=== PATIENT | male | born 1985 | race Caucasian/White ===

== ENCOUNTER 2019-10-31 12:10 | Emergency (ER) | payer MEDICARE, MEDICAID ==
[~2019-10-31] VITALS: Ht 180.3 cm; Wt 149.6 kg
[2019-10-31 12:15] VITALS: BP 163/87
[2019-10-31] MEDS ORDERED: IBUPROFEN 800 MG (MOTRIN) TAB PO ONE (12:30)
[2019-10-31 12:38] LABS: BILIRUBIN,URINE NEGATIVE (NEGATIVE); CLARITY,URINE CLOUDY; COLOR,URINE DARK YELLOW; GLUCOSE, URINE (UA) NEGATIVE (NEGATIVE); KETONES,URINE NEGATIVE (NEGATIVE); LEUKOCYTE ESTERASE ,URINE 2+ (NEGATIVE); NITRITE,URINE NEGATIVE (NEGATIVE); PROTEIN,URINE 2+ (NEGATIVE); RBC,URINE 50-100 /HPF
[2019-10-31 12:39] LABS: BACTERIA,URINE TRACE /HPF; WBC,URINE >100 /HPF
[2019-10-31] MEDS ORDERED: cefTRIAXone 1,000 MG/2.86 ml vial (IM ONLY) IM SCH (12:45)
[2019-10-31] MEDS ORDERED: LIDOCAINE 1% INJ 20 ML 20 ML VIAL INJ ONE (12:45)
[2019-10-31] MEDS ORDERED: SERT100T8 PO (12:49)
[2019-10-31] MEDS ORDERED: LITH300C PO (12:49)
[2019-10-31] MEDS ORDERED: LURA20TA PO (12:49)
[2019-10-31] MEDS ORDERED: LURA80TA3 PO (12:49)
[2019-10-31] MEDS ORDERED: CLON0.1T PO (12:49)
--- NOTE | 2019-10-31 12:50 | NUR ---
[facility] walk-in clinic was called at this time for patient report, because patient stated he was told to go to Emergency Room. Deidra the law firm receptionist stated patient was not seen there, but there was a phone call and Chiquis Campo told patient to go to emergency room, because he might have a kidney stone.
--- NOTE | 2019-10-31 12:54 | ED General ---
General Chief Complaint: - Urinary Stated Complaint: PAINFUL URINATION Nursing Triage Note: Pt presents to ED sent from [facility] Walk In [facility] for urinary sx-painful urination x 2 days. Pt described urinary discharge being noted once. Nursing Sepsis Screen: No Definite Risk History of Present Illness Date Seen by Provider: Oct 31, 2019 Time Seen by Provider: 12:15 Initial Comments The patient is a 34-year-old male who presents for evaluation of 2 days of dysu sharri. Patient notes burning discomfort to the distal shaft and tip of his penis with urination and has also noticed an odor and some scant blood in his urine over that interval. No associated fevers, nausea or vomiting, abdominal pain of any kind, flank pain, new or worsening back pain (patient does admit to some longstanding chronic low back pain which he states is not new or different today), pain to testicles or scrotum or perineum or rectum, changes in bowel habits. Patient is alert and pleasantly and appropriately interactive and in absolutely no distress upon initial evaluation here in the emergency department. No therapy for discomfort prior to arrival; patient states he only has pain when he tries to urinate. Patient relates that he has not been sexually active with a partner in at least the last year. Allergies and Home Medications Allergies Coded Allergies: methylphenidate (Unverified Adverse Reaction, Unknown, 10/31/19) ziprasidone (Unverified Adverse Reaction, Unknown, 10/31/19) Patient Home Medication List Home Medication List Reviewed: Yes Review of Systems Review of Systems Constitutional: see HPI All Other Systems Reviewed Negative Unless Noted: Yes Past Supaury-Jkcyeb-Sqnbrz Hx Past Med/Social Hx: Reviewed Nursing Past Med/Soc Hx Patient Social History Alcohol Use: Denies Use Recreational Drug Use: No Smoking Status: Never a Smoker 2nd Hand Smoke Exposure: Yes Recent Foreign Travel: No Contact w/Someone Who Travel: No Recent Infectious Disease Expo: No Recent Hopitalizations: No Physical Abuse: No Sexual Abuse: No Mistreated: No Fear: No Immunizations Up To Date Tetanus Booster (TDap): Unknown Seasonal Allergies Seasonal Allergies: No Past Medical History Surgeries: Yes (Colonoscopy) Respiratory: No Cardiac: No Neurological: No Genitourinary: No Gastrointestinal: No Musculoskeletal: No Endocrine: No HEENT: No Cancer: No Psychosocial: Yes (On Latuda, Sertraline, [place], Clonindine) ADD/ADHD, Bipolar Integumentary: Yes Eczema Blood Disorders: No Family Medical History Reviewed Nursing Family Hx Physical Exam Vital Signs Vital Signs - First Documented 10/31/19 12:15 Temp 36.1 Pulse 93 Resp 20 B/P (MAP) 163/87 (112) Pulse Ox 99 O2 Delivery Room Air Capillary Refill : Less Than 3 Seconds Height, Weight, BMI Height: '" Weight: lbs. oz. kg; 46.00 BMI Method: General Appearance: No Apparent Distress Comments This is a younger male appearing nontoxic and in no acute distress. Head is normocephalic and atraumatic. Neck is supple and nontender. Oropharynx is moist. Lungs are clear to auscultation at all stations. There is normal S1 and S2 without rubs or gallops and capillary refill is appropriate, less than 2 seconds globally. Abdomen is soft, nontender and nondistended. No CVA tenderness to percussion. Examination of the back reveals no erythema, warmth, swelling or focal tenderness. Examination of the genitourinary system reveals no erythema, warmth, swelling, tenderness, rashes or lesions to inguinal region, penis, testicles, scrotum, perineum or rectum. No inguinal lymphadenopathy noted. Bilateral lower extremities are neurovascularly intact distally with strength 5 out of 5, sensation intact to light touch in all nerve distributions, DP and PT pulses 2+, capillary refill less than 2 seconds, feet warm and well-perfused. Progress/Results/Core Measures Suspected Sepsis Recent Fever Within 48 Hours: No Infection Criteria Present: Suspected New Infection New/Unexplained Altered Menta: No Sepsis Screen: No Definite Risk SIRS Temperature: Pulse: 93 Respiratory Rate: 20 Blood Pressure 163 /87 Mean: 112 Results/Orders Lab Results Laboratory Tests Test 10/31/19 12:20 Range/Units Urine Color DARK YELLOW Urine Clarity CLOUDY Urine pH 6.0 5-9 Urine Specific [place] >=1.030 1.016-1.022 Urine Protein 2+ H NEGATIVE Urine Glucose (UA) NEGATIVE NEGATIVE Urine Ketones NEGATIVE NEGATIVE Urine Nitrite NEGATIVE NEGATIVE Urine Bilirubin NEGATIVE NEGATIVE Urine Urobilinogen 0.2 < = 1.0 MG/DL Urine Leukocyte Esterase 2+ H NEGATIVE Urine RBC (Auto) 3+ H NEGATIVE Urine RBC 50-100 H /HPF Urine WBC >100 H /HPF Urine Squamous Epithelial Cells 2-5 /HPF Urine Crystals NONE /LPF Urine Bacteria TRACE /HPF Urine Casts NONE /LPF Urine Mucus LARGE H /LPF Urine Culture Indicated YES My Orders Orders - CONNOR VEGAS MD Chlamydia Trachomatis Urine (10/31/19 12:17) Neis Edenilson Dna Urine Test (10/31/19 12:17) Ua Culture If Indicated (10/31/19 12:20) Ibuprofen Tablet (Motrin Tablet) (10/31/19 12:30) Urine Culture (10/31/19 12:20) Ceftriaxone For Im Use (Rocephin For Im (10/31/19 12:45) Lidocaine 1% Inj 20 Ml (Xylocaine 1% Inj (10/31/19 12:45) Vital Signs/I&O 10/31/19 12:15 Temp 36.1 Pulse 93 Resp 20 B/P (MAP) 163/87 (112) Pulse Ox 99 O2 Delivery Room Air Capillary Refill : Less Than 3 Seconds Blood Pressure Mean: 112 Progress Note : Time: 12:54 Progress Note Urinalysis is positive for evidence of quite significant cystitis. Patient does have a degree of hematuria however he has NO abdominal pain and NO flank or back pain. Overall clinical scenario is not consistent with ureteral stone or other intra-abdominal or retroperitoneal acute process. We have sent a urine culture and have also sent gonorrhea and chlamydia testing but will hold off on empiric treatment for STIs given no sexual partners recently. Will treat for complicated cystitis with a dose of Rocephin here and a course of Bactrim for home use. Patient has been advised that if culture indicates that his antibiotic needs to be adjusted that we will contact him to follow up. He understands that if he feels worse instead of better or develops other new symptoms of concern that he needs to return to the emergency department right away for reevaluation. Otherwise he is to follow-up in the next 1-2 days with primary care in the office. All questions are answered. Departure Impression Primary Impression: Acute cystitis with hematuria Disposition: 01 HOME, SELF-CARE Condition: Improved Departure-Patient Inst. Referrals: SELF,TEN LAWTON Patient Instructions: Urinary Tract Infection, Adult (DC), Urinary Tract Infections in Adults Add. Discharge Instructions: Follow-up very closely with your primary care physician in the office in the next 1-2 days for a reevaluation of your symptoms any discussion of next steps in care. Take the ibuprofen as prescribed for discomfort associated with urination. Take the antibiotic until the prescription is gone. Return to the emergency department right away with worsening symptoms or with any other new symptoms of concern. Scripts Ibuprofen (Ibuprofen) 800 Mg Tablet 800 MG PO Q8H PRN for PAIN, #30 TAB 0 Refills Prov: CONNOR VEGAS MD 10/31/19 Sulfamethoxazole/Trimethoprim (Bactrim Ds Tablet) 1 Each Tablet 1 EACH PO BID for 7 Days, #14 TAB Prov: CONNOR VEGAS MD 10/31/19 CONNOR VEGAS MD Oct 31, 2019 12:54
[2019-10-31] MEDS ORDERED: SULF1TAB35 PO (13:01)
[2019-10-31] MEDS ORDERED: IBUP-1780 PO (13:01)
--- OUTSIDE RECORDS SUMMARY | 2019-10-31 15:25 | XMS REPORT ---
Author Author Everardo HOLLOWAY Organization [facility] Address [address] [place] [address] Care Team Providers Care Boom Tender Name Role Phone FIGUEROA HOLLOWAY Unavailable PROBLEMS Unknown Problems ALLERGIES Substance Reaction Event Type Date Status Ritalin Unknown Drug Allergy Jul, Active Geodon palpatations Drug Allergy Jul, Active ENCOUNTERS Encounter Location Date Diagnosis [facility] [id number] [place] [address] Apr, Acute URI J06.9 [facility] [id number] [place] [address] Aug, Ingrowing left great toenail L60.0 [facility] [id number] [place] [address] Jul, Ingrown toenail of right foot L60.0 IMMUNIZATIONS No Known Immunizations SOCIAL HISTORY Never Assessed REASON FOR VISIT right great toenail ingrown and infected, annalisa patiño PLAN OF CARE Activity Details Follow Up 2 Weeks Reason: VITAL SIGNS Weight 320 lbs 2018-08-03 Blood pressure systolic 124 mmHg 2018-08-03 Blood pressure diastolic 82 mmHg 2018-08-03 MEDICATIONS Medication Instructions Dosage Frequency Start Date End Date Duration S tatus Clonidine HCl 0.1 MG Orally Once a day 1 tablet at bedtime 24h 30 day(s) Active [place] Carbonate 300 MG Orally Once a day 1 capsule at bedtime 24h 30 day(s) Active Sulfamethoxazole-Trimethoprim 800-160 MG Orally Twice a day 1 table t 12h Jul, 10 day(s) Active Benadryl Allergy 25 MG Orally every 8 hrs 1 tablet as needed 8h Active Naproxen 500 MG Orally every 12 hrs 1 tablet with food or milk as nee ded 12h Not-Taking Latuda 80 MG Orally Once a day 1 tablet with food 24h 30 day(s) Active Zoloft 50 MG Orally Once a day 1 tablet 24h 30 day(s ) Active Zoloft 100 MG Orally Once a day 1 tablet 24h 30 day( s) Active RESULTS No Results PROCEDURES No Known procedures INSTRUCTIONS MEDICATIONS ADMINISTERED No Known Medications MEDICAL (GENERAL) HISTORY Type Description Date Medical History bi polar disorder Medical History environmental allergies Medical History thyroid function study abnormality Medical History chronic midline low back pain Medical History lumbar spondylolysis Medical History lumbar disc narrowing Medical History lumbar canal stenosis
--- OUTSIDE RECORDS SUMMARY | 2019-10-31 15:25 | XMS REPORT | Continuity of Care Document ---
Author Organization Unknown Address Unknown Phone Unavailable Allergies There is no data. Medications There is no data. Problems There is no data. Procedures There is no data. Results Test Result Range Complete urinalysis with reflex to cultu re - 10/31/19 12:20 Urine color determination DARK YELLOW N RG Urine clarity determination CLOUDY NR G Urine pH measurement by test strip 6.0 5-9 Specific gravity of urine by test strip >= 1.016-1.022 Urine protein assay by test strip, semi-quantitative 2+ NEGATIVE Urine glucose detection by automated test strip NE GATIVE NEGATIVE Erythrocytes detection in urine sediment by light micr oscopy 3+ NEGATIVE Urine ketones detection by automated test strip NE GATIVE NEGATIVE Urine nitrite detection by test strip NEGATIVE NEGATIVE Urine total bilirubin detection by test strip NEGA TIVE NEGATIVE Urine urobilinogen measurement by automated test strip (mass/volume) 0.2 mg/dL < = 1.0 Urine leukocyte esterase detection by dipstick 2+ NEGATIVE Automated urine sediment erythrocyte cou nt by microscopy (number/high power field) [HPF] NRG Automated urine sediment leukocyte count by microscopy (number/high power field) > [HPF] NRG Bacteria detection in urine sediment by light microsco py TRACE NRG Squamous epithelial cells detection in u rine sediment by light microscopy 2-5 NRG Crystals detection in urine sediment by light microsco py NONE NRG Casts detection in urine sediment by light microscopy NONE NRG Mucus detection in urine sediment by light microscopy LARGE NRG Complete urinalysis with reflex to culture YES NRG Encounters ACCT No. Visit Date/Time Discharge Status Pt. Type Provider Facility Loc./Unit Complaint [id number] 08/17/2018 13:20:00 08/17/2018 23:59: 59 CLS Outpatient SHAY OLIVEIRA LAC [id number] 10/31/2019 12:13:00 020 13:09:00 DIS Emergency [facility], CONNOR Draper [facility] ER FS PAINFUL URINATION
== END 2019-10-31 13:09 | disposition home or self-care (01) ==
LOC: ER FS 12:13
DX: N30.01 Acute cystitis with hematuria (principal); Z88.8 Allergy status to other drugs, medicaments and biological substances; Z77.22 Contact with and (suspected) exposure to environmental tobacco smoke (acute) (chronic)
CPT/HCPCS: 81000; 87088; 87491; 87591; 99284